=== PATIENT | male | born 1955 | race Caucasian/White ===

== ENCOUNTER 2017-01-19 03:42 | Emergency (ER) | payer SELFPAY ==
--- NOTE | 2017-01-19 03:46 | ED Physician Documentation ---
General Adult - HISTORIAN Historian: patient - HPI Stated Complaint: back pain Chief Complaint: General Adult Onset: hours Timing: still present Severity: moderate Further Comments: yes (Pt is a 61 yo male with hx sciatica and back pain for which he has had steroid injections in the past. Pt lives in [place] and has been riding a motorcycle returning to [place] from [place]. Pt states that he can't ride the motorcycle now because of back pain, and has stopped to stay at a hotel.) - ROS CONST: no problems EYES/ENT: none CVS/RESP: none GI/: none MS/SKIN/LYMPH: other (low back pain) - PAST HX Past History: other (back pain) Allergies/Adverse Reactions: Allergies Allergy/AdvReac Type Severity Reaction Status Date / Time No Known Allergies Allergy Verified 01/19/17 03:51 Home Medications: Ambulatory Orders Medication Instructions Recorded NK [NK] 01/19/17 - SOCIAL HX Smoking History: quit greater than 1 year - FAMILY HX Family History: No - REVIEWED ASSESSMENTS Nursing Assessment Reviewed: Yes Vitals Reviewed: Yes Progress - Progress Progress: Toradol 60 mg IM improved Flexeril 10 mg-->home. Pt will take after he arrives at [facility]. General Adult Physical Exam - PHYSICAL EXAM GENERAL APPEARANCE: moderate distress NECK: normal inspection, supple RESPIRATORY: no resp distress, chest non-tender, breath sounds normal CVS: reg rate & rhythm BACK: normal inspection, other (para-lumbar muscle spasm) SKIN: warm/dry, normal color EXTREMITIES: non-tender, normal range of motion, no evidence of injury NEURO: oriented X3, motor nml, sensation nml Discharge Clincal Impression: back pain Home Medications: Ambulatory Orders NK [NK] 01/19/17 Condition: Stable Disposition: 01 HOME, SELF-CARE Decision to Admit: NO Decision Time: 04:35
[2017-01-19] MEDS ORDERED: KETOROLAC TROMETHAMINE 60 MG/2 ML VIAL IM ONE (03:54)
[2017-01-19 04:18] VITALS: BP 135/79
[2017-01-19] MEDS ORDERED: CYCLOBENZAPRINE HCL 5 MG TABLET PO ONE (04:33)
== END 2017-01-19 04:40 | disposition home or self-care (01) ==
LOC: ED 03:42
DX: M54.40 Lumbago with sciatica, unspecified side (principal)
CPT/HCPCS: 96372; 99283; J1885